=== PATIENT | male | born 1950 | race Caucasian/White ===

== ENCOUNTER 2017-11-18 13:14 | Emergency (ER) | payer OTHER ==
[~2017-11-18] VITALS: Ht 172.7 cm; Wt 108.9 kg
[~2017-11-18 13:14] MED LIST: ALBU90OI6 INH; AMLO5 PO; ASPI325 PO; Acidophilus1 EAC2 PO; BIOTIN1000 MCG PO; CARI350 PO; CENTRUM SILVER1 EAC2 PO; CHRO200 PO; CLON.1 PO; CYAN500 PO; DIAZ5 PO; DOXE10 PO; FURO40 PO; Fish Oil 1,0001 EAC3 PO; Fluoxetine HCl20 M1 PO; GABA600 PO; GLIP10 PO; HYDACE5 PO; Humulin N100 UNIT/1 SC; INSULANPEN SC; L-LYSINE500 MG PO; LOSARTAN POTAS100 MG PO; METF500C PO; METO50 PO; Magnesium500 MG PO; NITR.4SL SL; Novolin R100 UNIT/M SC; OLME20 PO; OXYC10TA19 PO; POTCHL10ER PO; PRAVASTATIN SOD10 MG PO; PYRI100 PO; TRAMADOL HCL E100 MG PO; ZYDONE
[2017-11-18 14:00] LABS: BASOPHILS ABSOLUTE AUTO 0.02 K/mm3 (0.00-0.23); BASOPHILS PERCENT AUTO 0 % (0-2); EOSINOPHILS ABSOLUTE AUTO 0.19 K/mm3 (0.00-0.68); EOSINOPHILS PERCENT AUTO 3 % (0-6); Hematocrit 47.6 % (37.0-53.0); Hemoglobin 15.5 g/dL (13.5-17.5); IMMATURE GRAN ABSOLUTE AUTO 0.02 K/mm3 (0.00-0.10); IMMATURE GRAN PERCENT AUTO 0 % (0-1); LYMPHOCYTES ABSOLUTE AUTO 1.13 K/mm3 (0.84-5.20); LYMPHOCYTES PERCENT AUTO 20 % (21-46); MONOCYTES ABSOLUTE AUTO 0.72 K/mm3 (0.16-1.47); MONOCYTES PERCENT AUTO 13 % (4-13); Mean Corpuscular HGB 28.3 pg (26.0-34.0); Mean Corpuscular HGB Conc 32.6 g/dL (31.5-36.5); Mean Corpuscular Volume 87 fL (80-100); Mean Platelet Volume 11.1 fL (9.1-12.4); NEUTROPHILS ABSOLUTE AUTO 3.45 K/mm3 (1.96-9.15); NEUTROPHILS PERCENT AUTO 62 % (41-73); Platelet Count 205 K/mm3 (150-400); RDW Coefficient Variation 12.8 % (11.7-14.2); RDW Standard Deviation 40.9 fL (35.1-46.3); Red Blood Cell Count 5.47 M/mm3 (4.30-5.90); White Blood Cell Count 5.53 K/mm3 (4.00-11.30)
[2017-11-18 14:17] LABS: Alanine Aminotransfer (ALT/SGP 30 U/L (12-78); Albumin, Blood 3.3 g/dL (3.4-5.0); Albumin/Globulin Ratio 0.8 (0.8-1.8); Alk Phos 98 U/L (50-136); Anion Gap 8 mmol/L (6-16); Aspartate Aminotrans (AST/SGOT 29 U/L (12-37); Bilirubin, Total 0.7 mg/dL (0.1-1.0); Blood Urea Nitrogen 17 mg/dL (8-24); Bun/Creatinine Ratio 21.8 (12.0-20.0); CO2, Blood 26 mmol/L (21-32); Calcium, Blood 8.1 mg/dL (8.5-10.1); Chloride, Blood 105 mmol/L (98-108); Creatinine, Blood 0.78 mg/dL (0.60-1.20); Globulin, Blood 3.9 g/dL (2.2-4.0); Glomerular Filtration Rate >60 (60-); Glucose, Blood 188 mg/dL (70-99); Sodium, Blood 139 mmol/L (136-145); Total Protein, Blood 7.2 g/dL (6.4-8.2)
[2017-11-18 15:48] LABS: Troponin I <0.015 ng/mL (0.000-0.040)
== END 2017-11-18 17:00 | disposition home or self-care (01) ==
LOC: ER 13:14
PROVIDERS: Emergency Medicine
DX: A08.4 Viral intestinal infection, unspecified (principal); Z88.5 Allergy status to narcotic agent; Z88.8 Allergy status to other drugs, medicaments and biological substances; Z79.899 Other long term (current) drug therapy; Z79.82 Long term (current) use of aspirin; Z79.4 Long term (current) use of insulin; Z79.84 Long term (current) use of oral hypoglycemic drugs; E11.9 Type 2 diabetes mellitus without complications; I10 Essential (primary) hypertension
CPT/HCPCS: 36415; 74176; 80053; 83690; 84484; 85025; 93005; 93010; 99284

== ENCOUNTER 2018-01-15 09:15 | Day surgery (SDC) | payer OTHER ==
[~2018-01-15] VITALS: Ht 172.7 cm; Wt 106.4 kg
== END 2018-01-15 11:24 | disposition home or self-care (01) ==
LOC: ORSCSDS 09:15
PROVIDERS: Surgery
PROC: 0DBC8ZX Excision of Ileocecal Valve, Via Natural or Artificial Opening Endoscopic, Diagnostic (ICD-10-PCS; principal; 2018-01-15 10:30)
PROC: 0DBL8ZX Excision of Transverse Colon, Via Natural or Artificial Opening Endoscopic, Diagnostic (ICD-10-PCS; principal; 2018-01-15 10:30)
DX: Z12.11 Encounter for screening for malignant neoplasm of colon (principal); D12.0 Benign neoplasm of cecum; D12.3 Benign neoplasm of transverse colon; I10 Essential (primary) hypertension; E11.9 Type 2 diabetes mellitus without complications; G47.33 Obstructive sleep apnea (adult) (pediatric); E66.9 Obesity, unspecified; Z68.36 Body mass index [BMI] 36.0-36.9, adult; Z87.891 Personal history of nicotine dependence; Z79.82 Long term (current) use of aspirin; Z79.4 Long term (current) use of insulin; Z79.899 Other long term (current) drug therapy
CPT/HCPCS: 82947; 88305; J7120

== ENCOUNTER 2018-03-31 13:33 | Emergency (ER) | payer OTHER ==
[~2018-03-31] VITALS: Ht 172.7 cm; Wt 108.9 kg
[2018-03-31 14:34] LABS: BASOPHILS ABSOLUTE AUTO 0.05 K/mm3 (0.00-0.23); BASOPHILS PERCENT AUTO 1 % (0-2); EOSINOPHILS ABSOLUTE AUTO 0.16 K/mm3 (0.00-0.68); EOSINOPHILS PERCENT AUTO 2 % (0-6); Hematocrit 47.5 % (37.0-53.0); IMMATURE GRAN ABSOLUTE AUTO 0.03 K/mm3 (0.00-0.10); IMMATURE GRAN PERCENT AUTO 0 % (0-1); LYMPHOCYTES ABSOLUTE AUTO 2.59 K/mm3 (0.84-5.20); LYMPHOCYTES PERCENT AUTO 27 % (21-46); MONOCYTES ABSOLUTE AUTO 0.73 K/mm3 (0.16-1.47); MONOCYTES PERCENT AUTO 8 % (4-13); Mean Corpuscular HGB 28.5 pg (26.0-34.0); Mean Corpuscular HGB Conc 33.7 g/dL (31.5-36.5); Mean Corpuscular Volume 85 fL (80-100); Mean Platelet Volume 11.7 fL (9.1-12.4); NEUTROPHILS ABSOLUTE AUTO 6.02 K/mm3 (1.96-9.15); NEUTROPHILS PERCENT AUTO 63 % (41-73); Platelet Count 246 K/mm3 (150-400); RDW Coefficient Variation 12.3 % (11.7-14.2); RDW Standard Deviation 37.7 fL (35.1-46.3); Red Blood Cell Count 5.61 M/mm3 (4.30-5.90); White Blood Cell Count 9.58 K/mm3 (4.00-11.30)
[2018-03-31 15:19] LABS: Alanine Aminotransfer (ALT/SGP 47 U/L (12-78); Albumin, Blood 3.5 g/dL (3.4-5.0); Alk Phos 99 U/L (50-136); Anion Gap 12 mmol/L (6-16); Aspartate Aminotrans (AST/SGOT 32 U/L (12-37); Bilirubin, Total 0.8 mg/dL (0.1-1.0); Blood Urea Nitrogen 12 mg/dL (8-24); CO2, Blood 26 mmol/L (21-32); Calcium, Blood 8.1 mg/dL (8.5-10.1); Chloride, Blood 105 mmol/L (98-108); Creatinine, Blood 0.71 mg/dL (0.60-1.20); Globulin, Blood 3.6 g/dL (2.2-4.0); Glomerular Filtration Rate >60 (60-); Glucose, Blood 170 mg/dL (70-99); Potassium, Blood 3.9 mmol/L (3.5-5.5); Sodium, Blood 143 mmol/L (136-145); Total Protein, Blood 7.1 g/dL (6.4-8.2)
== END 2018-03-31 16:40 | disposition home or self-care (01) ==
LOC: ER 13:33
PROVIDERS: Emergency Medicine
DX: R53.1 Weakness (principal); I10 Essential (primary) hypertension; E11.40 Type 2 diabetes mellitus with diabetic neuropathy, unspecified; Z88.5 Allergy status to narcotic agent; Z88.8 Allergy status to other drugs, medicaments and biological substances; Z79.899 Other long term (current) drug therapy; Z79.82 Long term (current) use of aspirin; Z79.4 Long term (current) use of insulin; Z79.51 Long term (current) use of inhaled steroids; Z86.73 Personal history of transient ischemic attack (TIA), and cerebral infarction without residual deficits
CPT/HCPCS: 70450; 80053; 85025; 93005; 93010; 99285-25

== ENCOUNTER 2018-12-04 09:01 | Day surgery (SDC) | payer OTHER ==
[~2018-12-04] VITALS: Ht 172.7 cm; Wt 108.0 kg
[~2018-12-04 09:01] MED LIST changes: +ALBU90OI61 INH; +ANTACID 1000-21 EACH PO; +Aspir-Trin325 MG PO; +Chromium Pico200 MCG PO; +FISH OIL 1,2001 EACH PO; +FLUO10 PO; +Glucophage1000 MG PO; +L-Lysine500 M1 PO; +METO50ER PO; +Magnesium Oxid500 MG PO; +Nitrostat0.4 MG SL; +ONE DAILY COMP1 EACH PO; +PROBIOTIC & AC1 EACH PO; +PROLIA60 MG/1 ML INJ; +TRAMADOL HCL E100 M2 PO; +VITAMIN D35000 UNI1 PO
--- NOTE | 2018-12-04 11:44 | NUR ---
12/04/18 1144 Tiffany Silva 2% LIDOCAINE NUBULIZER TREATMENT [address] PRADHAN
--- NOTE | 2018-12-04 12:18 | NUR ---
12/04/[address] ALSO IN ENDO ROOM WITH DR. PRADHAN.
--- NOTE | 2018-12-04 13:20 | NUR ---
12/04/18 1320 Norma Judge LATE ENTRY- UPON ARRIVING TO STEP DOWN PT HAD DRY COUGH. LUNG SOUNDS WERE CLEAR AND REGULAR BILATERALLY PER AUSCULATION. PT TOLERATED PO FLUIDS WELL. AFTER DRINKING SOME WATER THE COUGH BECAME LESS. PT HAD O2 SATS OF 95% ON ROOM AIR AND MAINTAINED SATS GREATER THAN 92% WHILE IN STEP DOWN. RN WENT OVER DISCHARGE INSTRUCTIONS WITH PT AND PT'S UNTIL ALL QUESTIONS WERE ANSWERED. PT AMBULATED TO 'S CAR VIA STAND BY ASSIST AND CANE. PT SENT HOME WITH DISCHARGE INSTRUCTIONS AND PERSONAL BELONGINGS. PT VOICED SATISFACTION WITH THE CARE TODAY.
== END 2018-12-04 13:10 | disposition home or self-care (01) ==
LOC: ORSCSDS 09:01
PROVIDERS: Internal Medicine Gastroenterology
PROC: 0DB68ZX Excision of Stomach, Via Natural or Artificial Opening Endoscopic, Diagnostic (ICD-10-PCS; principal; 2018-12-04 11:00)
PROC: 0DB98ZX Excision of Duodenum, Via Natural or Artificial Opening Endoscopic, Diagnostic (ICD-10-PCS; principal; 2018-12-04 11:00)
PROC: 0D757ZZ Dilation of Esophagus, Via Natural or Artificial Opening (ICD-10-PCS; principal; 2018-12-04 11:00)
DX: R13.10 Dysphagia, unspecified (principal); K29.80 Duodenitis without bleeding; K29.70 Gastritis, unspecified, without bleeding; I10 Essential (primary) hypertension; I25.10 Atherosclerotic heart disease of native coronary artery without angina pectoris; J44.9 Chronic obstructive pulmonary disease, unspecified; G47.33 Obstructive sleep apnea (adult) (pediatric); E78.00 Pure hypercholesterolemia, unspecified; I69.341 Monoplegia of lower limb following cerebral infarction affecting right dominant side; E66.01 Morbid (severe) obesity due to excess calories; Z68.36 Body mass index [BMI] 36.0-36.9, adult; Z79.899 Other long term (current) drug therapy
CPT/HCPCS: 82947; 88305; 88342; J2250; J3010; J7120

== ENCOUNTER 2019-03-13 17:30 | Emergency (ER) | payer OTHER ==
[~2019-03-13] VITALS: Ht 172.7 cm; Wt 108.4 kg
[2019-03-13 18:07] LABS: BASOPHILS ABSOLUTE AUTO 0.04 K/mm3 (0.00-0.23); BASOPHILS PERCENT AUTO 0 % (0-2); EOSINOPHILS ABSOLUTE AUTO 0.41 K/mm3 (0.00-0.68); EOSINOPHILS PERCENT AUTO 4 % (0-6); Hematocrit 49.3 % (37.0-53.0); Hemoglobin 16.1 g/dL (13.5-17.5); IMMATURE GRAN ABSOLUTE AUTO 0.05 K/mm3 (0.00-0.10); IMMATURE GRAN PERCENT AUTO 1 % (0-1); LYMPHOCYTES ABSOLUTE AUTO 2.57 K/mm3 (0.84-5.20); LYMPHOCYTES PERCENT AUTO 24 % (21-46); MONOCYTES ABSOLUTE AUTO 0.81 K/mm3 (0.16-1.47); MONOCYTES PERCENT AUTO 8 % (4-13); Mean Corpuscular HGB 28.7 pg (26.0-34.0); Mean Corpuscular HGB Conc 32.7 g/dL (31.5-36.5); Mean Corpuscular Volume 88 fL (80-100); Mean Platelet Volume 10.9 fL (9.1-12.4); NEUTROPHILS ABSOLUTE AUTO 6.94 K/mm3 (1.96-9.15); NEUTROPHILS PERCENT AUTO 64 % (41-73); Platelet Count 248 K/mm3 (150-400); RDW Coefficient Variation 13.2 % (11.7-14.2); RDW Standard Deviation 42.5 fL (35.1-46.3); Red Blood Cell Count 5.61 M/mm3 (4.30-5.90); White Blood Cell Count 10.82 K/mm3 (4.00-11.30)
[2019-03-13 18:30] LABS: Alanine Aminotransfer (ALT/SGP 42 U/L (12-78); Albumin, Blood 3.7 g/dL (3.4-5.0); Albumin/Globulin Ratio 0.9 (0.8-1.8); Alk Phos 106 U/L (50-136); Anion Gap 7 mmol/L (6-16); Aspartate Aminotrans (AST/SGOT 27 U/L (12-37); Bilirubin, Total 0.6 mg/dL (0.1-1.0); Blood Urea Nitrogen 20 mg/dL (8-24); CO2, Blood 30 mmol/L (21-32); Calcium, Blood 8.9 mg/dL (8.5-10.1); Chloride, Blood 101 mmol/L (98-108); Creatinine, Blood 0.74 mg/dL (0.60-1.20); Globulin, Blood 4.1 g/dL (2.2-4.0); Glomerular Filtration Rate >60 (60-); Glucose, Blood 207 mg/dL (70-99); Potassium, Blood 3.8 mmol/L (3.5-5.5); Sodium, Blood 138 mmol/L (136-145); Total Protein, Blood 7.8 g/dL (6.4-8.2)
== END 2019-03-13 21:03 | disposition home or self-care (01) ==
LOC: ER 17:30
PROVIDERS: Emergency Medicine
DX: R19.8 Other specified symptoms and signs involving the digestive system and abdomen (principal); R13.10 Dysphagia, unspecified; E11.9 Type 2 diabetes mellitus without complications; I10 Essential (primary) hypertension; F41.9 Anxiety disorder, unspecified; K21.9 Gastro-esophageal reflux disease without esophagitis; J45.909 Unspecified asthma, uncomplicated; Z79.899 Other long term (current) drug therapy
CPT/HCPCS: 71046; 80053; 85025; 96374; 99283-25; J2405

== ENCOUNTER 2019-10-17 10:44 | Emergency (ER) | payer OTHER ==
[~2019-10-17] VITALS: Ht 175.3 cm; Wt 108.4 kg
[2019-10-17 11:29] LABS: BASOPHILS ABSOLUTE AUTO 0.04 K/mm3 (0.00-0.23); BASOPHILS PERCENT AUTO 1 % (0-2); EOSINOPHILS ABSOLUTE AUTO 0.14 K/mm3 (0.00-0.68); EOSINOPHILS PERCENT AUTO 2 % (0-6); Hematocrit 54.8 % (37.0-53.0); Hemoglobin 17.8 g/dL (13.5-17.5); IMMATURE GRAN ABSOLUTE AUTO 0.03 K/mm3 (0.00-0.10); IMMATURE GRAN PERCENT AUTO 0 % (0-1); LYMPHOCYTES ABSOLUTE AUTO 1.21 K/mm3 (0.84-5.20); LYMPHOCYTES PERCENT AUTO 14 % (21-46); MONOCYTES ABSOLUTE AUTO 0.76 K/mm3 (0.16-1.47); MONOCYTES PERCENT AUTO 9 % (4-13); Mean Corpuscular HGB 28.5 pg (26.0-34.0); Mean Corpuscular HGB Conc 32.5 g/dL (31.5-36.5); Mean Corpuscular Volume 88 fL (80-100); Mean Platelet Volume 11.3 fL (9.1-12.4); NEUTROPHILS ABSOLUTE AUTO 6.41 K/mm3 (1.96-9.15); NEUTROPHILS PERCENT AUTO 75 % (41-73); Platelet Count 238 K/mm3 (150-400); RDW Coefficient Variation 12.7 % (11.7-14.2); RDW Standard Deviation 40.7 fL (35.1-46.3); Red Blood Cell Count 6.25 M/mm3 (4.30-5.90); White Blood Cell Count 8.59 K/mm3 (4.00-11.30)
[2019-10-17 11:46] LABS: Alanine Aminotransfer (ALT/SGP 44 U/L (12-78); Albumin, Blood 3.7 g/dL (3.4-5.0); Anion Gap 8 mmol/L (6-16); Aspartate Aminotrans (AST/SGOT 29 U/L (12-37); Bilirubin, Total 0.8 mg/dL (0.1-1.0); Blood Urea Nitrogen 13 mg/dL (8-24); Bun/Creatinine Ratio 17.4 (12.0-20.0); CO2, Blood 26 mmol/L (21-32); Calcium, Blood 9.1 mg/dL (8.5-10.1); Chloride, Blood 106 mmol/L (98-108); Creatinine, Blood 0.75 mg/dL (0.60-1.20); Glomerular Filtration Rate >60 (60-); Glucose, Blood 240 mg/dL (70-99); Potassium, Blood 3.5 mmol/L (3.5-5.5); Sodium, Blood 140 mmol/L (136-145)
[2019-10-17 11:50] LABS: Albumin/Globulin Ratio 0.9 (0.8-1.8); Alk Phos 114 U/L (50-136); Total Protein, Blood 7.7 g/dL (6.4-8.2); Troponin I <0.015 ng/mL (0.000-0.040)
[2019-10-17 12:12] LABS: Free Thyroxine 1.29 ng/dL (0.70-1.60); Magnesium, Blood 1.6 mg/dL (1.6-2.4)
[2019-10-17 12:14] LABS: Thyroid Stimulating Hormone 1.44 uIU/mL (0.360-4.800)
[2019-10-17 12:22] LABS: Influenza A Negative (NEGATIVE); Influenza B Negative (NEGATIVE)
[2019-10-17] MEDS ORDERED: AZIT250 PO (13:12)
== END 2019-10-17 13:41 | disposition home or self-care (01) ==
LOC: ER 10:44
PROVIDERS: Emergency Medicine
DX: J40 Bronchitis, not specified as acute or chronic (principal); R53.1 Weakness; E11.9 Type 2 diabetes mellitus without complications; I10 Essential (primary) hypertension; K21.9 Gastro-esophageal reflux disease without esophagitis; F41.9 Anxiety disorder, unspecified; Z88.5 Allergy status to narcotic agent; Z88.8 Allergy status to other drugs, medicaments and biological substances; Z79.899 Other long term (current) drug therapy; Z79.4 Long term (current) use of insulin; Z79.51 Long term (current) use of inhaled steroids; Z79.82 Long term (current) use of aspirin
CPT/HCPCS: 36415; 71046; 80053; 83735; 83880; 84439; 84443; 84484; 85025; 87804; 93005; 93010; 99284-25

== ENCOUNTER 2019-12-05 22:05 | Inpatient (IN) | payer OTHER ==
[~2019-12-05] VITALS: Ht 175.3 cm; Wt 103.1 kg
[~2019-12-05 22:05] MED LIST changes: +AZIT250 PO
[2019-12-05 22:56] LABS: BASOPHILS ABSOLUTE AUTO 0.04 K/mm3 (0.00-0.23); BASOPHILS PERCENT AUTO 0 % (0-2); EOSINOPHILS ABSOLUTE AUTO 0.04 K/mm3 (0.00-0.68); EOSINOPHILS PERCENT AUTO 0 % (0-6); Hematocrit 52.6 % (37.0-53.0); Hemoglobin 17.4 g/dL (13.5-17.5); IMMATURE GRAN ABSOLUTE AUTO 0.04 K/mm3 (0.00-0.10); IMMATURE GRAN PERCENT AUTO 0 % (0-1); LYMPHOCYTES ABSOLUTE AUTO 1.28 K/mm3 (0.84-5.20); LYMPHOCYTES PERCENT AUTO 10 % (21-46); MONOCYTES ABSOLUTE AUTO 0.35 K/mm3 (0.16-1.47); MONOCYTES PERCENT AUTO 3 % (4-13); Mean Corpuscular HGB 29.1 pg (26.0-34.0); Mean Corpuscular HGB Conc 33.1 g/dL (31.5-36.5); Mean Corpuscular Volume 88 fL (80-100); Mean Platelet Volume 10.9 fL (9.1-12.4); NEUTROPHILS ABSOLUTE AUTO 10.64 K/mm3 (1.96-9.15); NEUTROPHILS PERCENT AUTO 86 % (41-73); Platelet Count 261 K/mm3 (150-400); RDW Coefficient Variation 12.8 % (11.7-14.2); RDW Standard Deviation 41.1 fL (35.1-46.3); Red Blood Cell Count 5.98 M/mm3 (4.30-5.90); White Blood Cell Count 12.39 K/mm3 (4.00-11.30)
[2019-12-05 23:17] LABS: Alanine Aminotransfer (ALT/SGP 37 U/L (12-78); Albumin, Blood 3.8 g/dL (3.4-5.0); Alk Phos 106 U/L (50-136); Anion Gap 7 mmol/L (6-16); Aspartate Aminotrans (AST/SGOT 23 U/L (12-37); Bilirubin, Total 0.6 mg/dL (0.1-1.0); Blood Urea Nitrogen 11 mg/dL (8-24); Bun/Creatinine Ratio 15.4 (12.0-20.0); CO2, Blood 27 mmol/L (21-32); Calcium, Blood 8.5 mg/dL (8.5-10.1); Chloride, Blood 106 mmol/L (98-108); Creatinine, Blood 0.71 mg/dL (0.60-1.20); Globulin, Blood 3.9 g/dL (2.2-4.0); Glomerular Filtration Rate >60 (60-); Glucose, Blood 170 mg/dL (70-99); Potassium, Blood 3.8 mmol/L (3.5-5.5); Sodium, Blood 140 mmol/L (136-145); Total Protein, Blood 7.7 g/dL (6.4-8.2); Troponin I <0.015 ng/mL (0.000-0.040)
[2019-12-05] MEDS ORDERED: ONDA4ODT MM (23:47)
[2019-12-06 03:06] LABS: Influenza A Negative (NEGATIVE); Influenza B Negative (NEGATIVE)
--- NOTE | 2019-12-06 08:14 | NUR ---
SHIFT SUMMARY PT A&O; ARRIVED VIA STRETCHER FROME ER; TRANSFERED SELF TO BED; PT WEAK & DIZZY; PT DIAPHORETIC, VOMITTING, AND GOWN SATURATED W/URINE; BP ELEVATED; HR STABLE; PT DENIES CHEST PAIN; PT NPO; HOWEVER PO MEDS GIVEN; METOPROLOL AND NORVASC GIVEN PER EMAR; NS GTT STARTED @75; O2 SATS >94 ON RA; DIM LUNG SOUNDS NOTED; PT ABLE TO GO THROUGH MED REC AND ADMIT QUESTIONS; SPOUSE CALLED THIS AM FOR UPDATE; PT DENIES NEEDS AT THIS TIME; CALL LIGHT IN REACH; BED IN LOWEST POSITION; REPORT GIVEN TO DAY SHIFT RN
[2019-12-06 11:27] LABS: Hemoglobin 19.1 g/dL (13.5-17.5); Mean Corpuscular HGB 28.8 pg (26.0-34.0); Mean Corpuscular HGB Conc 33.2 g/dL (31.5-36.5); Mean Corpuscular Volume 87 fL (80-100); Mean Platelet Volume 10.9 fL (9.1-12.4); Platelet Count 322 K/mm3 (150-400); RDW Coefficient Variation 13.5 % (11.7-14.2); Red Blood Cell Count 6.64 M/mm3 (4.30-5.90)
[2019-12-06 11:34] LABS: Hematocrit 57.5 % (37.0-53.0)
[2019-12-06 11:46] LABS: Alanine Aminotransfer (ALT/SGP 39 U/L (12-78); Albumin/Globulin Ratio 0.9 (0.8-1.8); Alk Phos 122 U/L (50-136); Anion Gap 12 mmol/L (6-16); Aspartate Aminotrans (AST/SGOT 23 U/L (12-37); Bilirubin, Total 0.9 mg/dL (0.1-1.0); Blood Urea Nitrogen 9 mg/dL (8-24); Bun/Creatinine Ratio 13.2 (12.0-20.0); CO2, Blood 27 mmol/L (21-32); Calcium, Blood 8.8 mg/dL (8.5-10.1); Chloride, Blood 102 mmol/L (98-108); Creatinine, Blood 0.68 mg/dL (0.60-1.20); Globulin, Blood 4.3 g/dL (2.2-4.0); Glomerular Filtration Rate >60 (60-); Glucose, Blood 275 mg/dL (70-99); Potassium, Blood 3.6 mmol/L (3.5-5.5); Sodium, Blood 141 mmol/L (136-145); Total Protein, Blood 8.3 g/dL (6.4-8.2)
[2019-12-06 12:08] LABS: Source, Urine Clean Catch
[2019-12-06 12:14] LABS: Bilirubin, Urine Neg (Neg); Blood, Urine 3+ (Neg); Glucose Qualitative, Urine 4+ (Neg); Ketones, Urine 4+ (Neg); Leukocyte Esterase, Urine Neg (Neg); Nitrite, Urine Neg (Neg); Protein, Urine 4+ (Neg); Specific Gravity, Urine 1.015 (1.003-1.022); Urobilinogen, Urine NORM (Normal); pH, Urine 6.5 (5.0-8.0)
[2019-12-06 12:21] LABS: Appearance, Urine Clear (Clear); Color, Urine Yellow (P-Yellow)
[2019-12-06 12:22] LABS: Bacteria Few /hpf
[2019-12-06 12:23] LABS: Squamous Epithelial Cells Not Seen /hpf (Few)
--- NOTE | 2019-12-06 17:44 | NUR ---
SHIFT SUMMARY PT REMAINS HYPERTENSIVE. PO MEDS ADMINISTERED PER EMAR. PRN HYDRALIZINE WAS GIVEN X2. HOSPITALIST NOTIFIED, HAS BEEN CONSULTED. PT STATES HE SEE'S JASON AN OUT PT FOR HTN MANAGEMENT. PT HAS BEEN NAUSEOUS. IV ZOFRAN & REGLAN GIVEN PER EMAR. PT IS CURRENTLY UP IN THE CHAIR SIPPING ON CLEAR FLUIDS. 1000 ML NS INFUSED X1 PER ORDER. MEDIUM SLIDING SCALE ORDERED FOR GLUCOSE COVERAGE, AWAITING HUMALOG, ON ROOM AIR, DENIES CP/SOB. VOIDING WNL, INCONTINENCE NOTED, HE WILL ATTEMPT TO USE THE URINAL AT TIMES. WCTM & REPORT TO ARASELI HOWE.
--- NOTE | 2019-12-07 07:50 | NUR ---
PT A&O; CALM AND COMPLIANT W/ CARE; OF STOIC NATURE AND RELUCTANT TO CALL STAFF W/ BRIEF CHANGE NEEDS; ATTENDS ASSESSED Q 2 HRS; PT EDUCATED FOR TO CALL STAFF FOR ATTENDS CHANGE FOR SKIN INTEGRITY; PT SPOKE TO SPOUSE AND PT REPORTED THAT SPOUSE HAS BEEN VOMITTING WELL; PT GIVEN REGLAN FOR NAUSEA AND TO TAKE PO 2100 MEDS; O2 SATS >95 ON RA; PT DENIES CHEST PAIN; NSR HR 80'S NOTED ON TELE; CALL LIGHT IN REACH; BED IN LOWEST POSITION; REPORT GIVEN TO DAY SHIFT RN.
[2019-12-07 07:59] LABS: Thyroid Stimulating Hormone 1.35 uIU/mL (0.360-4.800)
--- NOTE | 2019-12-07 16:48 | NUR ---
SHIFT SUMMARY NO ACUTE CHANGES THROUGHOUT SHIFT. BP BETTER CONTROLLED TODAY, MAINTAINING AROUND THE 150'S. PT DENIED ANY C/O CHEST PAIN/PRESSURE, SOB, NAUSEA/VOMITING, OR HEADACHE THIS SHIFT. RENAL US WAS COMPLETED AT BEDSIDE; RESULTS UNREMARKABLE. DR. GOMEZ IN TO SEE PT; ORDERED 24 HOUR URINE TEST. PT IS INCONTINENT AT TIMES & RELUCTANT TO CALL WHEN NEEDING TO VOID; DISCUSSED IMPORTANCE OF ACCURATE URINE OUTPUT FOR TESTING; ENCOURAGED URINAL USE W/ HOURLY ROUNDING. A BLADDER SCAN WAS PERFORMED PER MD REQUEST, PVR READ [address] SKINNER WAS CONSULTED TODAY FOR POLYCYTHEMIA; BEDSIDE PHLEBOTOMY WAS PERFORMED BY MD TO IMPROVE HYPERTENSION; PT TOLERATED WELL. PT CURRENTLY RESTING IN BED IN NO DISTRESS. 24 HOUR URINE TESTING REMAINS IN PROGRESS. WILL CONTINUE TO MONITOR UNTIL END OF SHIFT.
[2019-12-08 04:28] LABS: Hematocrit 51.4 % (37.0-53.0)
[2019-12-08 04:55] LABS: Albumin, Blood 3.2 g/dL (3.4-5.0); Anion Gap 8 mmol/L (6-16); Blood Urea Nitrogen 24 mg/dL (8-24); Bun/Creatinine Ratio 32.3 (12.0-20.0); CO2, Blood 26 mmol/L (21-32); Calcium, Blood 8.1 mg/dL (8.5-10.1); Chloride, Blood 106 mmol/L (98-108); Creatinine, Blood 0.74 mg/dL (0.60-1.20); Glomerular Filtration Rate >60 (60-); Glucose, Blood 194 mg/dL (70-99); Magnesium, Blood 2.3 mg/dL (1.6-2.4); Phosphorus, Blood 1.8 mg/dL (2.5-4.9); Potassium, Blood 3.4 mmol/L (3.5-5.5); Sodium, Blood 140 mmol/L (136-145)
--- NOTE | 2019-12-08 07:49 | NUR ---
ASSUMED PATIENT CARE. PATIENT RESTING COMFORTABLY IN BED, CONVERSING WITH NURSING STAFF. NO SIGNS OF ACUTE DISTRESS, WCTM.
--- NOTE | 2019-12-08 08:15 | NUR ---
SHIFT SUMMARY PT A&O; VSS; DENIES CHEST PAIN; O2 SATS >94 ON RA; PT INCONTINENT; ATTENDS IN PLACE; PT EDUCATED ON NEED FOR 24 HR URINE; PT DENIES NEED TO URINATE; LATER NOTED ATTENDS SATURATED; PT EDUCATED TO USE CALL LIGHT TO NOTIFY STAFF OF NEEDS; PT APPEARS TO USE URINAL MORE READILY DURING DAY SHIFT PER REPORTS BETWEEN STAFF; PT DENIES NEEDS; SNACK BROUGHT TO PT AND PT ATE AND WAS APPRECIATIVE; PT ENCOURAGED TO EAT AND EDUCATED THAT SNACKS CAN BE PROVIDED AT NIGHT; PT DENIED DENTURE CUP; DENIED HELP W/ PERSONAL BELONGINGS; WARM BLANKET BROUGHT TO PT; CALL LIGHT IN REACH; BED IN LOWEST POSITION; PT SITTING IN BED W/ BREAKFAST TRAY; REPORT GIVEN TO DAY SHIFT RN.
[2019-12-08 11:39] LABS: Protein, Urine Quantitative 110.3 mg/dL (0.0-11.9)
--- NOTE | 2019-12-08 11:47 | NUR ---
REPORT CALLED TO DANTE HOWE ON MEDICAL.
--- NOTE | 2019-12-08 11:47 | NUR ---
PATIENT TRANSFERED TO RM. 313.
--- NOTE | 2019-12-08 12:11 | NUR ---
PCU TRANSFER- PT ARRIVED TO ROOM 313 VIA W/C FROM PCU 8. 1 ASSIST INTO BED WITH FWW. PT A/OX4, DENIES ANY COMPLAINTS. LS CLEAR, ON RA. HRR. PT ORIENTED TO ROOM AND CALL SYSTEM, CALL LIGHT IN REACH AND PT SITTING AT EDGE OF BED EATING LUNCH AT THIS TIME.
--- NOTE | 2019-12-08 16:55 | NUR ---
SHIFT SUMMARY- PT A PCU TRANSFER THIS AM. PT A/OX3, 1 ASSIST WITH FWW OOB. PT DENIES ANY COMPLAINTS SINCE ARRIVAL TO FLOOR. LS CLEAR, ON RA. HRR. BP HAS BEEN WELL CONTROLLED SINCE ARRIVAL TO FLOOR. NO OTHER ACUTE CHANGES THIS SHIFT.
[2019-12-09 05:09] LABS: Hematocrit 49.4 % (37.0-53.0); Hemoglobin 16.3 g/dL (13.5-17.5)
[2019-12-09 05:22] LABS: Magnesium, Blood 2.2 mg/dL (1.6-2.4)
[2019-12-09 05:23] LABS: Anion Gap 5 mmol/L (6-16); Blood Urea Nitrogen 21 mg/dL (8-24); Bun/Creatinine Ratio 25.6 (12.0-20.0); CO2, Blood 31 mmol/L (21-32); Calcium, Blood 8.3 mg/dL (8.5-10.1); Chloride, Blood 105 mmol/L (98-108); Creatinine, Blood 0.82 mg/dL (0.60-1.20); Glomerular Filtration Rate >60 (60-); Glucose, Blood 112 mg/dL (70-99); Phosphorus, Blood 2.9 mg/dL (2.5-4.9); Potassium, Blood 3.4 mmol/L (3.5-5.5); Sodium, Blood 141 mmol/L (136-145)
--- NOTE | 2019-12-09 05:55 | NUR ---
PT quiet and clam. Room air hypertension controlled on current meds. No void this shift bladder scanned for 86 ml highest volume of several views. DR Branch notified and no new orders, reviewed vitals bradycardia and anuria. PT as no urge to void. Ate 50 % diet and denies nausea. Not up out of bed this shift. Sliding scale insulin given for BG 244.
--- NOTE | 2019-12-09 16:05 | NUR ---
SHIFT SUMMARY NO ACUTE CHANGES TODAY. VSS. PT DENIES ANY COMPLAINTS. PT DOES HAVE SOME WEAKNESS, AND PHYSICAL THERAPY DID EVAL TODAY. 1 ASSIST WITH FWW. USING URINAL TO VOID. PLAN IS FOR PT TO DISCHARGE HOME TOMORROW. CALL LIGHT WITHIN REACH.
[2019-12-10 05:00] LABS: BASOPHILS ABSOLUTE AUTO 0.05 K/mm3 (0.00-0.23); BASOPHILS PERCENT AUTO 1 % (0-2); EOSINOPHILS ABSOLUTE AUTO 0.49 K/mm3 (0.00-0.68); EOSINOPHILS PERCENT AUTO 5 % (0-6); Hematocrit 50.5 % (37.0-53.0); Hemoglobin 16.7 g/dL (13.5-17.5); IMMATURE GRAN ABSOLUTE AUTO 0.05 K/mm3 (0.00-0.10); IMMATURE GRAN PERCENT AUTO 1 % (0-1); LYMPHOCYTES ABSOLUTE AUTO 2.66 K/mm3 (0.84-5.20); LYMPHOCYTES PERCENT AUTO 25 % (21-46); MONOCYTES ABSOLUTE AUTO 0.85 K/mm3 (0.16-1.47); MONOCYTES PERCENT AUTO 8 % (4-13); Mean Corpuscular HGB 28.9 pg (26.0-34.0); Mean Corpuscular HGB Conc 33.1 g/dL (31.5-36.5); Mean Corpuscular Volume 88 fL (80-100); Mean Platelet Volume 10.8 fL (9.1-12.4); NEUTROPHILS PERCENT AUTO 62 % (41-73); Platelet Count 261 K/mm3 (150-400); RDW Coefficient Variation 12.9 % (11.7-14.2); RDW Standard Deviation 41.4 fL (35.1-46.3); Red Blood Cell Count 5.77 M/mm3 (4.30-5.90)
[2019-12-10 05:18] LABS: Anion Gap 4 mmol/L (6-16); Blood Urea Nitrogen 21 mg/dL (8-24); Bun/Creatinine Ratio 25.4 (12.0-20.0); CO2, Blood 30 mmol/L (21-32); Calcium, Blood 8.2 mg/dL (8.5-10.1); Chloride, Blood 106 mmol/L (98-108); Creatinine, Blood 0.83 mg/dL (0.60-1.20); Glomerular Filtration Rate >60 (60-); Glucose, Blood 84 mg/dL (70-99); Magnesium, Blood 2.2 mg/dL (1.6-2.4); Phosphorus, Blood 3.7 mg/dL (2.5-4.9); Potassium, Blood 3.4 mmol/L (3.5-5.5); Sodium, Blood 140 mmol/L (136-145)
--- NOTE | 2019-12-10 06:54 | NUR ---
PT with hx of CVA and chronic Kidney disease. Polycythenia continues stable. BP controlled on current RX. Tolerating diet and activity. Up with assist and FWW. Planning to DC home with home health services. Lives with & Son.
[2019-12-10] MEDS ORDERED: K-Dur 20 meq T20 MEQ PO (11:31)
--- NOTE | 2019-12-10 11:32 | NUR ---
DISCHARGE/HOME HEALTH ARRANGEMENTS PT'S MURPHY NOTIFIED OF DISCHARGE PLAN AND EDUCATED ABOUT CHANGE IN HOME MEDICATIONS. VIANEY FROM DISCHARGE PLANNING AND SHELDON WERE NOTIFIED THAT PT WILL NEED HOME HEALTH ARRANGEMENTS MADE.
[2019-12-10] MEDS ORDERED: AMLO5 PO (12:33)
--- NOTE | 2019-12-10 13:45 | NUR ---
DISCHARGE PT PROVIDED WITH WRITTEN AND VERBAL DISCHARGE INSTRUCTIONS. PT REPORTED HE UNDERSTOOD. NEW SCRIPTS FAXED TO [facility] IN [place] PER PT REQUEST. WILL CONTINUE TO MONITOR.
[2019-12-10 17:09] LABS: METANEPHRINE, UR 173 ug/L (Undefined)
[2019-12-11 00:10] LABS: ALDOS/RENIN RATIO 5.2 (0.0-30.0)
[2019-12-12 22:06] LABS: CREATININE, URINE 128.4 mg/dL (Not Estab.)
== END 2019-12-10 13:36 | disposition home health service (06) | DRG 305 ==
LOC: ER 22:05 → PCU 22:06 → ER 12-06 01:00 → PCU 12-06 05:15 → MEDS 12-08 11:58 → ENPENDDIS 12-10 13:10 → MEDS 12-10 13:36
PROVIDERS: Emergency Medicine; Internal Medicine; Internal Medicine Nephrology; Physician Assistant; ADMIT Internal Medicine
DX: I16.0 Hypertensive urgency (principal); D75.1 Secondary polycythemia; N18.2 Chronic kidney disease, stage 2 (mild); I12.9 Hypertensive chronic kidney disease with stage 1 through stage 4 chronic kidney disease, or unspecified chronic kidney disease; E11.22 Type 2 diabetes mellitus with diabetic chronic kidney disease; E87.6 Hypokalemia; E83.39 Other disorders of phosphorus metabolism; E78.5 Hyperlipidemia, unspecified; E11.40 Type 2 diabetes mellitus with diabetic neuropathy, unspecified; D63.1 Anemia in chronic kidney disease; Z86.73 Personal history of transient ischemic attack (TIA), and cerebral infarction without residual deficits; Z79.82 Long term (current) use of aspirin; Z79.4 Long term (current) use of insulin; Z79.84 Long term (current) use of oral hypoglycemic drugs
CPT/HCPCS: 36415; 70450; 71045; 80053; 80069; 81001; 81050; 82088; 82530; 82947; 83690; 83735; 83835; 84156; 84244; 84443; 84484; 84550; 85014; 85018; 85025; 85027; 87804; 93005; 93010; 93975; 96361; 96372; 96374; 96375; 96376; 97116; 97162; 97530; 99285-25; A9270-GY; G0378; J0360; J1650; J2405; J2765; J7030; J7060

== ENCOUNTER 2020-01-02 13:29 | Emergency (ER) | payer OTHER ==
[~2020-01-02] VITALS: Ht 175.3 cm; Wt 104.3 kg
[~2020-01-02 13:29] MED LIST changes: +ASPI325EC PO; -Aspir-Trin325 MG PO; -FISH OIL 1,2001 EACH PO; +Fish Oil Conc1000 MG PO; +K-Dur 20 meq T20 MEQ PO; +ONDA4ODT MM; -PROLIA60 MG/1 ML INJ; +PROLIA60 MG/1 ML SC; +ROXICODONE15 MG PO; +VITAMIN D31000 UNI1 PO; -VITAMIN D35000 UNI1 PO
[2020-01-02 14:52] LABS: BASOPHILS ABSOLUTE AUTO 0.04 K/mm3 (0.00-0.23); BASOPHILS PERCENT AUTO 1 % (0-2); EOSINOPHILS PERCENT AUTO 3 % (0-6); Hematocrit 45.3 % (37.0-53.0); Hemoglobin 15.2 g/dL (13.5-17.5); IMMATURE GRAN ABSOLUTE AUTO 0.02 K/mm3 (0.00-0.10); IMMATURE GRAN PERCENT AUTO 0 % (0-1); LYMPHOCYTES ABSOLUTE AUTO 2.31 K/mm3 (0.84-5.20); LYMPHOCYTES PERCENT AUTO 26 % (21-46); MONOCYTES ABSOLUTE AUTO 0.72 K/mm3 (0.16-1.47); MONOCYTES PERCENT AUTO 8 % (4-13); Mean Corpuscular HGB 29.1 pg (26.0-34.0); Mean Corpuscular HGB Conc 33.6 g/dL (31.5-36.5); Mean Corpuscular Volume 87 fL (80-100); Mean Platelet Volume 11.9 fL (9.1-12.4); NEUTROPHILS ABSOLUTE AUTO 5.45 K/mm3 (1.96-9.15); NEUTROPHILS PERCENT AUTO 62 % (41-73); Platelet Count 259 K/mm3 (150-400); RDW Coefficient Variation 12.6 % (11.7-14.2); RDW Standard Deviation 39.6 fL (35.1-46.3); Red Blood Cell Count 5.22 M/mm3 (4.30-5.90); White Blood Cell Count 8.84 K/mm3 (4.00-11.30)
[2020-01-02 14:57] LABS: Alanine Aminotransfer (ALT/SGP 39 U/L (12-78); Albumin, Blood 3.1 g/dL (3.4-5.0); Albumin/Globulin Ratio 0.9 (0.8-1.8); Alk Phos 112 U/L (50-136); Anion Gap 5 mmol/L (6-16); Aspartate Aminotrans (AST/SGOT 28 U/L (12-37); Bilirubin, Total 0.5 mg/dL (0.1-1.0); Blood Urea Nitrogen 13 mg/dL (8-24); Bun/Creatinine Ratio 17.5 (12.0-20.0); CO2, Blood 26 mmol/L (21-32); Calcium, Blood 8.8 mg/dL (8.5-10.1); Chloride, Blood 105 mmol/L (98-108); Creatinine, Blood 0.74 mg/dL (0.60-1.20); Globulin, Blood 3.6 g/dL (2.2-4.0); Glomerular Filtration Rate >60 (60-); Glucose, Blood 264 mg/dL (70-99); Potassium, Blood 4.2 mmol/L (3.5-5.5); Sodium, Blood 136 mmol/L (136-145); Total Protein, Blood 6.7 g/dL (6.4-8.2)
[2020-01-02 15:18] LABS: Source, Urine Clean Catch
[2020-01-02 15:25] LABS: Appearance, Urine Clear (Clear); Bilirubin, Urine Neg (Neg); Blood, Urine Neg (Neg); Color, Urine Yellow (P-Yellow); Glucose Qualitative, Urine 4+ (Neg); Ketones, Urine Neg (Neg); Leukocyte Esterase, Urine Neg (Neg); Nitrite, Urine Neg (Neg); Protein, Urine 3+ (Neg); Specific Gravity, Urine 1.025 (1.003-1.022); Urobilinogen, Urine NORM (Normal)
[2020-01-02 15:37] LABS: Bacteria Not Seen /hpf; Red Blood Cells, Urine Not Seen /hpf (0-2); Squamous Epithelial Cells Not Seen /hpf (Few); White Blood Cells, Urine Not Seen /hpf (0-5)
== END 2020-01-02 16:17 | disposition home or self-care (01) ==
LOC: ER 13:29
PROVIDERS: Physician Assistant
DX: R29.898 Other symptoms and signs involving the musculoskeletal system (principal); I10 Essential (primary) hypertension; E11.42 Type 2 diabetes mellitus with diabetic polyneuropathy; K21.9 Gastro-esophageal reflux disease without esophagitis; F41.9 Anxiety disorder, unspecified; J45.909 Unspecified asthma, uncomplicated; Z88.5 Allergy status to narcotic agent; Z88.8 Allergy status to other drugs, medicaments and biological substances; Z79.899 Other long term (current) drug therapy; Z79.82 Long term (current) use of aspirin; Z79.4 Long term (current) use of insulin; Z79.51 Long term (current) use of inhaled steroids
CPT/HCPCS: 70450; 80053; 81001; 83880; 85025; 93005; 93010; 99285-25

== ENCOUNTER 2020-01-03 15:40 | Inpatient (IN) | payer OTHER ==
[~2020-01-03] VITALS: Ht 175.3 cm; Wt 97.6 kg
[2020-01-03 16:19] LABS: BASOPHILS ABSOLUTE AUTO 0.05 K/mm3 (0.00-0.23); BASOPHILS PERCENT AUTO 1 % (0-2); EOSINOPHILS ABSOLUTE AUTO 0.33 K/mm3 (0.00-0.68); EOSINOPHILS PERCENT AUTO 4 % (0-6); Hematocrit 48.6 % (37.0-53.0); Hemoglobin 16.2 g/dL (13.5-17.5); IMMATURE GRAN ABSOLUTE AUTO 0.03 K/mm3 (0.00-0.10); IMMATURE GRAN PERCENT AUTO 0 % (0-1); LYMPHOCYTES ABSOLUTE AUTO 2.11 K/mm3 (0.84-5.20); LYMPHOCYTES PERCENT AUTO 23 % (21-46); MONOCYTES ABSOLUTE AUTO 0.75 K/mm3 (0.16-1.47); MONOCYTES PERCENT AUTO 8 % (4-13); Mean Corpuscular HGB 29.1 pg (26.0-34.0); Mean Corpuscular HGB Conc 33.3 g/dL (31.5-36.5); Mean Corpuscular Volume 87 fL (80-100); Mean Platelet Volume 11.1 fL (9.1-12.4); NEUTROPHILS ABSOLUTE AUTO 5.73 K/mm3 (1.96-9.15); NEUTROPHILS PERCENT AUTO 64 % (41-73); Platelet Count 271 K/mm3 (150-400); RDW Coefficient Variation 12.5 % (11.7-14.2); RDW Standard Deviation 40.3 fL (35.1-46.3); Red Blood Cell Count 5.56 M/mm3 (4.30-5.90)
[2020-01-03 16:39] LABS: Alanine Aminotransfer (ALT/SGP 36 U/L (12-78); Albumin, Blood 3.3 g/dL (3.4-5.0); Albumin/Globulin Ratio 0.9 (0.8-1.8); Alk Phos 100 U/L (50-136); Anion Gap 5 mmol/L (6-16); Aspartate Aminotrans (AST/SGOT 23 U/L (12-37); Bilirubin, Total 0.6 mg/dL (0.1-1.0); Blood Urea Nitrogen 14 mg/dL (8-24); Bun/Creatinine Ratio 23.1 (12.0-20.0); CO2, Blood 25 mmol/L (21-32); Calcium, Blood 8.4 mg/dL (8.5-10.1); Chloride, Blood 107 mmol/L (98-108); Creatinine, Blood 0.61 mg/dL (0.60-1.20); Globulin, Blood 3.8 g/dL (2.2-4.0); Glomerular Filtration Rate >60 (60-); Glucose, Blood 190 mg/dL (70-99); Potassium, Blood 3.8 mmol/L (3.5-5.5); Sodium, Blood 137 mmol/L (136-145); Total Protein, Blood 7.1 g/dL (6.4-8.2)
[2020-01-03 16:41] LABS: International Normalized Ratio 1.07; Prothrombin Time Results 11.4 Sec (9.7-11.5)
--- NOTE | 2020-01-03 18:34 | NUR ---
RECEIVED REPORT FROM CELI MORALES RN, AT 1833. PATIENT TO BE TRANSFERED TO ROOM 305.
--- NOTE | 2020-01-03 19:00 | NUR ---
ASSUMED CARE PT TRANSPORTED FROM ED TO [facility] AT SHIFT CHANGE, RECEIVED REPORT FROM SHYAM CHUNG. ASSUMED CARE OF PT. TRANSFERRED PT TO HOSPITAL BED FROM [facility] WITH ASSISTANCE OF 3. PT REPORTS INABILITY TO SELF-TRANSFER OR AMBULATE D/T WEAKNESS. NO S/S ACUTE DISTRESS NOTED. RESPS EVEN AND UNLABORED. PT PLACED IN POSITION OF COMFORT, ORIENTED TO ROOM AND USE OF CALL LIGHT. REMINDED PT TO CALL WITH NEEDS. INDICATED UNDERSTANDING. BED IN LOWEST POSITION WITH ALARM ON. WILL CONTINUE TO MONITOR.
--- NOTE | 2020-01-03 19:10 | NUR ---
PATIENT ARRIVED TO ROOM 305 AT 1900. TYLER HOWE GIVEN REPORT AND TO TAKE OVER CARE OF PATIENT AT THIS TIME.
--- NOTE | 2020-01-04 04:20 | NUR ---
SHIFT SUMMARY PT REMAINS ASLEEP DURING THIS TIME, NO ACUTE EVENTS NOTED T/O NIGHT. WAS MONITORED EVERY 1-2 HOURS WITH NEEDS MET, DENIES ANY NEEDS AT THIS TIME. NEURO CHECKS PERFORMED Q4H ORDERED. LT SIDE NOTED TO BE WEAKER THAN RT. PT SPEECH SLURRED, DIFFICULT TO UNDERSTAND AT TIMES, BUT ABLE TO MAKE NEEDS KNOWN. PLEASANT AND COOPERATIVE WITH CARES. CALL LIGHT, POSSESSIONS IN REACH, BED IN LOWEST POSITION WITH ALARM ON, HOB ELEVATED. WILL CONTINUE TO MONITOR UNTIL DAY RN ASSUMES CARE.
[2020-01-04 04:36] LABS: BASOPHILS ABSOLUTE AUTO 0.04 K/mm3 (0.00-0.23); BASOPHILS PERCENT AUTO 1 % (0-2); EOSINOPHILS ABSOLUTE AUTO 0.36 K/mm3 (0.00-0.68); EOSINOPHILS PERCENT AUTO 4 % (0-6); Hematocrit 46.5 % (37.0-53.0); Hemoglobin 15.5 g/dL (13.5-17.5); IMMATURE GRAN ABSOLUTE AUTO 0.03 K/mm3 (0.00-0.10); IMMATURE GRAN PERCENT AUTO 0 % (0-1); LYMPHOCYTES ABSOLUTE AUTO 2.37 K/mm3 (0.84-5.20); LYMPHOCYTES PERCENT AUTO 27 % (21-46); MONOCYTES ABSOLUTE AUTO 0.79 K/mm3 (0.16-1.47); MONOCYTES PERCENT AUTO 9 % (4-13); Mean Corpuscular HGB 28.9 pg (26.0-34.0); Mean Corpuscular HGB Conc 33.3 g/dL (31.5-36.5); Mean Corpuscular Volume 87 fL (80-100); Mean Platelet Volume 11.5 fL (9.1-12.4); NEUTROPHILS ABSOLUTE AUTO 5.21 K/mm3 (1.96-9.15); NEUTROPHILS PERCENT AUTO 59 % (41-73); Platelet Count 270 K/mm3 (150-400); RDW Coefficient Variation 12.7 % (11.7-14.2); RDW Standard Deviation 40.1 fL (35.1-46.3); Red Blood Cell Count 5.36 M/mm3 (4.30-5.90)
[2020-01-04 04:53] LABS: Anion Gap 7 mmol/L (6-16); Blood Urea Nitrogen 12 mg/dL (8-24); Bun/Creatinine Ratio 18.3 (12.0-20.0); CHOL/HDL RATIO 4.8; CO2, Blood 26 mmol/L (21-32); Chloride, Blood 108 mmol/L (98-108); Cholesterol 196 mg/dL (50-200); Creatinine, Blood 0.66 mg/dL (0.60-1.20); Glomerular Filtration Rate >60 (60-); Glucose, Blood 80 mg/dL (70-99); HDL Cholesterol 41 mg/dL (>39); LDL/HDL RATIO 2.9; Low Density Lipoprotein Chol 121 mg/dL (0-110); Potassium, Blood 3.3 mmol/L (3.5-5.5); Sodium, Blood 141 mmol/L (136-145); Triglycerides 172 mg/dL (30-160); Very Low Density Lipoprot Chol 34 mg/dL (6-32)
--- NOTE | 2020-01-04 06:57 | NUR ---
[address] MUÑIZ REGARDING PT'S POTASSIUM LEVEL, PT USE OF O2 AT HOME TO SEE IF A PRN O2 ORDER COULD BE ADDED. STATED TO CHECK WITH AM DOCTOR. NO OTHER ORDERS RECEIVED AT THIS TIME.
--- NOTE | 2020-01-04 11:16 | NUR ---
Echocardiogram completed.
--- NOTE | 2020-01-04 16:08 | NUR ---
PATIENT HAD GOOD DAY THIS SHIFT. WORKED WITH PT/OT AND ST. 2X MAX ASSIST PIVOT TRANSFER. PATIENT CAN NOT BE LEFT SITTING UPRIGHT IN A CHAIR HE FALLS FORWARD AND IS UNABLE TO PICK HIMSELF BACK UP. VITALS ARE STABLE AND WNL. NEUROLOGICALLY THE PATIENT IS A/OX4, SLOW SPEECH, LEFT SIDED WEAKNESS. PATIENT IS PLEASANT AND COOPERATIVE WITH STAFF. PATIENT BACK IN BED RESTING. WILL CONTINUE TO MONITOR AND PROVIDE CARE NEEDED.
--- NOTE | 2020-01-05 05:40 | NUR ---
SHIFT SUMMARY SLEPT WELL T/O NIGHT. DENIES PAIN, NAUSEA OR DYSPNEA. VSS. AOX4. HAS SLURRED SPEECH, ANSWERS QUESTIONS APPROPRIATELY, L FACIAL DROOP, L HAND MEDICAL DEVICE SALES CONSULTANT WEAKER THEN RIGHT, ABLE TO MOVE/WIGGLE ALL EXTREMITIES, STATES UNABLE TO STAND FROM WEAKNESS, FOLLOWS DIRECTIONS. INCONTINENT OF URINE, CHANGE PRN. SOFT TOUCH CALL LIGHT PLACED. ABLE TO FEED SELF BUT STATES IT IS DIFFICULT, MAY NEED SOME ASSISTANCE W/MEALS @TIMES-WILL PASS TO ONCOMING NURSE. CBG @HS WAS 356, COVERAGE PROVIDED PER ORDERS. WCTM.
[2020-01-05] MEDS ORDERED: ACET325 PO (12:34)
[2020-01-05] MEDS ORDERED: CLOP75 PO (12:35)
[2020-01-05] MEDS ORDERED: Aspir 8181 MG PO (12:35)
[2020-01-05] MEDS ORDERED: COLACE100 MG PO (12:35)
[2020-01-05] MEDS ORDERED: Humalog100 UNIT/3 SC (12:36)
--- NOTE | 2020-01-05 16:12 | NUR ---
[facility] AT [facility]. PERSONAL BELONGINGS WITH PT. PT 2 PERSON TRANSFER WITH [facility] TO [facility] FOR TRANSPORT. DC ORDERS AND RX SENT WITH PT.
== END 2020-01-05 16:12 | DRG 65 ==
LOC: ER 15:40 → MEDS 18:34
PROVIDERS: Emergency Medicine; ADMIT Internal Medicine
DX: I63.81 Other cerebral infarction due to occlusion or stenosis of small artery (principal); G81.94 Hemiplegia, unspecified affecting left nondominant side; R29.810 Facial weakness; R47.81 Slurred speech; I10 Essential (primary) hypertension; E78.5 Hyperlipidemia, unspecified; E66.9 Obesity, unspecified; R26.9 Unspecified abnormalities of gait and mobility; M81.0 Age-related osteoporosis without current pathological fracture; J44.9 Chronic obstructive pulmonary disease, unspecified; F32.9 Major depressive disorder, single episode, unspecified; G89.29 Other chronic pain; M54.9 Dorsalgia, unspecified; E11.40 Type 2 diabetes mellitus with diabetic neuropathy, unspecified; Z88.8 Allergy status to other drugs, medicaments and biological substances; Z88.5 Allergy status to narcotic agent; Z79.82 Long term (current) use of aspirin; Z79.4 Long term (current) use of insulin; Z79.891 Long term (current) use of opiate analgesic; Z79.899 Other long term (current) drug therapy; Z86.73 Personal history of transient ischemic attack (TIA), and cerebral infarction without residual deficits; Z68.31 Body mass index [BMI] 31.0-31.9, adult
CPT/HCPCS: 36415; 70450; 70551; 71045; 80048; 80053; 80061; 82947; 83036; 85025; 85610; 92526; 92610; 93005; 93010; 93306; 93880; 97110; 97163; 97167; 97530; 99285-25; A9270-GY; J1650

== ENCOUNTER → 2020-04-14 | Outpatient (CLI) | payer OTHER ==
[~2020-04-14] MED LIST changes: +ACET325 PO; +Aspir 8181 MG PO; +CLOP75 PO; +COLACE100 MG PO; +Humalog100 UNIT/3 SC
[2020-04-14 15:42] LABS: Hematocrit 51.4 % (37.0-53.0); Hemoglobin 16.3 g/dL (13.5-17.5)
[2020-04-14 16:15] LABS: Albumin, Blood 2.7 g/dL (3.4-5.0); Anion Gap 7 mmol/L (6-16); Blood Urea Nitrogen 29 mg/dL (8-24); CO2, Blood 26 mmol/L (21-32); Calcium, Blood 8.4 mg/dL (8.5-10.1); Chloride, Blood 105 mmol/L (98-108); Creatinine, Blood 0.68 mg/dL (0.60-1.20); Glomerular Filtration Rate >60 (60-); Glucose, Blood 194 mg/dL (70-99); Potassium, Blood 3.7 mmol/L (3.5-5.5); Sodium, Blood 138 mmol/L (136-145)
== END | disposition home or self-care (01) ==
LOC: LAB SHORT 14:24 → LAB 14:24
PROVIDERS: Internal Medicine Nephrology
DX: N18.3 Chronic kidney disease, stage 3 (moderate) (principal); D63.1 Anemia in chronic kidney disease; N40.1 Benign prostatic hyperplasia with lower urinary tract symptoms
CPT/HCPCS: 80069; 84153; 85014; 85018

== ENCOUNTER → 2020-05-11 | Outpatient (CLI) | payer OTHER ==
[2020-05-11 19:38] LABS: Albumin, Blood 2.6 g/dL (3.4-5.0); Anion Gap 6 mmol/L (6-16); Blood Urea Nitrogen 15 mg/dL (8-24); Bun/Creatinine Ratio 26.3 (12.0-20.0); CO2, Blood 27 mmol/L (21-32); Calcium, Blood 8.2 mg/dL (8.5-10.1); Chloride, Blood 103 mmol/L (98-108); Creatinine, Blood 0.57 mg/dL (0.60-1.20); Glomerular Filtration Rate >60 (60-); Glucose, Blood 304 mg/dL (70-99); Phosphorus, Blood 3.1 mg/dL (2.5-4.9); Potassium, Blood 4.1 mmol/L (3.5-5.5); Sodium, Blood 136 mmol/L (136-145)
== END | disposition home or self-care (01) ==
LOC: LAB SHORT 18:34 → LAB 18:34
PROVIDERS: Internal Medicine Nephrology
DX: N18.2 Chronic kidney disease, stage 2 (mild) (principal)
CPT/HCPCS: 80069; 85018

== ENCOUNTER → 2020-08-17 | Outpatient (CLI) | payer OTHER ==
[~2020-08-17] MED LIST changes: +ACIDOPHILUS1 EAC1 PO; +AMOCLA875 PO; +ASPI81CH PO; +ATORVASTATIN CA40 M1 PO; +Abilify2 MG PO; +BASAGLAR K100 UNIT/1 SC; +CEFDINIR300 M4 PO; +CEFP200 PO; +CLON.2 PO; +Cipro250 MG PO; +DOCU100 PO; +DOXY100 PO; +GABAPENTIN600 MG PO; +KLOR-CON 1010 ME1 PO; +LOSA50 PO; +METOPROLOL TART25 MG PO; +NOVOLIN R100 UNIT/2 SC; +NYSTATIN15 GM TOP; +SULFAMETHOXAZO1 EAC1 PO; +TAMSULOSIN HCL0.4 M1 PO
[2020-08-17 19:06] LABS: Appearance, Urine Clear (Clear); Bilirubin, Urine Neg (Neg); Blood, Urine 1+ (Neg); Color, Urine Yellow (P-Yellow); Glucose Qualitative, Urine 4+ (Neg); Ketones, Urine Neg (Neg); Leukocyte Esterase, Urine 3+ (Neg); Nitrite, Urine Pos (Neg); Protein, Urine 2+ (Neg); Urobilinogen, Urine NORM (Normal)
[2020-08-17 19:22] LABS: Amorphous Mod (0-Heavy); Bacteria Many /hpf; Squamous Epithelial Cells Not Seen /hpf (Few); White Blood Cells, Urine 50-100 /hpf (0-5)
[2020-08-17 20:29] LABS: Anion Gap 9 mmol/L (6-16); Blood Urea Nitrogen 16 mg/dL (8-24); Bun/Creatinine Ratio 25.7 (12.0-20.0); CO2, Blood 25 mmol/L (21-32); Calcium, Blood 8.4 mg/dL (8.5-10.1); Chloride, Blood 104 mmol/L (98-108); Creatinine, Blood 0.62 mg/dL (0.60-1.20); Glomerular Filtration Rate >60 (60-); Glucose, Blood 205 mg/dL (70-99); Phosphorus, Blood 3.2 mg/dL (2.5-4.9); Potassium, Blood 4.4 mmol/L (3.5-5.5); Sodium, Blood 138 mmol/L (136-145)
== END | disposition home or self-care (01) ==
LOC: LAB 18:22
PROVIDERS: Internal Medicine Nephrology
DX: N18.2 Chronic kidney disease, stage 2 (mild) (principal); D63.1 Anemia in chronic kidney disease
CPT/HCPCS: 80069; 81001; 85018; 87086

== ENCOUNTER 2020-09-29 16:30 | Emergency (ER) | payer OTHER ==
[~2020-09-29] VITALS: Ht 175.3 cm; Wt 108.9 kg
[~2020-09-29 16:30] MED LIST changes: -ACIDOPHILUS1 EAC1 PO; -AMOCLA875 PO; -ASPI81CH PO; -ATORVASTATIN CA40 M1 PO; -Abilify2 MG PO; -BASAGLAR K100 UNIT/1 SC; -CEFDINIR300 M4 PO; -CEFP200 PO; -CLON.2 PO; -Cipro250 MG PO; -DOCU100 PO; -DOXY100 PO; -FLUO10 PO; -GABAPENTIN600 MG PO; -KLOR-CON 1010 ME1 PO; -LOSA50 PO; -METOPROLOL TART25 MG PO; -NOVOLIN R100 UNIT/2 SC; -NYSTATIN15 GM TOP; -ROXICODONE15 MG PO; -SULFAMETHOXAZO1 EAC1 PO; -TAMSULOSIN HCL0.4 M1 PO
[2020-09-29] MEDS ORDERED: CEFP200 PO (17:59)
[2020-09-29 18:50] LABS: Source, Urine Catheter
[2020-09-29 18:54] LABS: Appearance, Urine Cloudy (Clear); Bilirubin, Urine Neg (Neg); Blood, Urine 5+ (Neg); Color, Urine Yellow (P-Yellow); Glucose Qualitative, Urine 4+ (Neg); Ketones, Urine 1+ (Neg); Leukocyte Esterase, Urine 3+ (Neg); Nitrite, Urine Pos (Neg); Protein, Urine 3+ (Neg); Specific Gravity, Urine 1.025 (1.003-1.022); Urobilinogen, Urine NORM (Normal)
[2020-09-29 19:09] LABS: Red Blood Cells, Urine 50-100 /hpf (0-2); Squamous Epithelial Cells Not Seen /hpf (Few)
[2020-09-29 19:10] LABS: Bacteria Mod /hpf; Yeast/Fungi Urine Mod /hpf
== END 2020-09-29 19:19 | disposition home or self-care (01) ==
LOC: ER 16:30
PROVIDERS: Physician Assistant
DX: T83.198A Other mechanical complication of other urinary devices and implants, initial encounter (principal); N39.0 Urinary tract infection, site not specified; Z79.4 Long term (current) use of insulin; Z79.82 Long term (current) use of aspirin; Z79.899 Other long term (current) drug therapy; Z79.02 Long term (current) use of antithrombotics/antiplatelets; Z88.5 Allergy status to narcotic agent; Z88.8 Allergy status to other drugs, medicaments and biological substances
CPT/HCPCS: 36415; 81001; 87077; 87086; 87186; 99283-25; A9270

== ENCOUNTER → 2020-10-31 | Outpatient (CLI) | payer OTHER ==
[~2020-10-31] MED LIST changes: +ACIDOPHILUS1 EAC1 PO; +AMOCLA875 PO; +ASPI81CH PO; +ATORVASTATIN CA40 M1 PO; +Abilify2 MG PO; +BASAGLAR K100 UNIT/1 SC; +CEFDINIR300 M4 PO; +CEFP200 PO; +CLON.2 PO; +Cipro250 MG PO; +DOCU100 PO; +DOXY100 PO; +FLUO10 PO; +GABAPENTIN600 MG PO; +KLOR-CON 1010 ME1 PO; +LOSA50 PO; +METOPROLOL TART25 MG PO; +NOVOLIN R100 UNIT/2 SC; +NYSTATIN15 GM TOP; +ROXICODONE15 MG PO; +SULFAMETHOXAZO1 EAC1 PO; +TAMSULOSIN HCL0.4 M1 PO
[2020-10-31 09:14] LABS: Source, Urine Catheter
[2020-10-31 09:26] LABS: Appearance, Urine Hazy (Clear); Bilirubin, Urine Neg (Neg); Blood, Urine 4+ (Neg); Color, Urine Yellow (P-Yellow); Glucose Qualitative, Urine 4+ (Neg); Ketones, Urine Neg (Neg); Leukocyte Esterase, Urine 3+ (Neg); Nitrite, Urine Pos (Neg); Protein, Urine 3+ (Neg); Urobilinogen, Urine NORM (Normal)
[2020-10-31 09:36] LABS: White Blood Cells, Urine TNTC /hpf (0-5)
[2020-10-31 09:38] LABS: Squamous Epithelial Cells Rare /hpf (Few)
[2020-10-31 09:39] LABS: Bacteria Many /hpf; Yeast/Fungi Urine Many /hpf
== END ==
LOC: LAB SHORT 09:11 → LAB 09:11
PROVIDERS: Family Medicine
DX: N39.0 Urinary tract infection, site not specified (principal)
CPT/HCPCS: 81001; 87077; 87086; 87147; 87186

== ENCOUNTER → 2020-12-14 | Outpatient (CLI) | payer OTHER ==
[2020-12-14 19:01] LABS: Albumin, Blood 2.7 g/dL (3.4-5.0); Anion Gap 5 mmol/L (6-16); Blood Urea Nitrogen 15 mg/dL (8-24); Bun/Creatinine Ratio 19.9 (12.0-20.0); CO2, Blood 29 mmol/L (21-32); Calcium, Blood 8.6 mg/dL (8.5-10.1); Chloride, Blood 100 mmol/L (98-108); Creatinine, Blood 0.75 mg/dL (0.60-1.20); Glomerular Filtration Rate >60 (60-); Glucose, Blood 261 mg/dL (70-99); Phosphorus, Blood 4.2 mg/dL (2.5-4.9); Potassium, Blood 3.6 mmol/L (3.5-5.5); Sodium, Blood 134 mmol/L (136-145)
== END | disposition home or self-care (01) ==
LOC: LAB HH 17:52
PROVIDERS: Internal Medicine Nephrology
DX: N18.2 Chronic kidney disease, stage 2 (mild) (principal); D63.1 Anemia in chronic kidney disease
CPT/HCPCS: 80069

== ENCOUNTER 2020-12-18 04:43 | Emergency (ER) | payer OTHER ==
[~2020-12-18] VITALS: Ht 172.7 cm; Wt 108.9 kg
[~2020-12-18 04:43] MED LIST changes: -ACIDOPHILUS1 EAC1 PO; -AMOCLA875 PO; -ASPI81CH PO; -ATORVASTATIN CA40 M1 PO; -Abilify2 MG PO; -BASAGLAR K100 UNIT/1 SC; -CEFDINIR300 M4 PO; -CLON.2 PO; -Cipro250 MG PO; -DOCU100 PO; -DOXY100 PO; -FLUO10 PO; -GABAPENTIN600 MG PO; -KLOR-CON 1010 ME1 PO; -LOSA50 PO; -METOPROLOL TART25 MG PO; -NOVOLIN R100 UNIT/2 SC; -NYSTATIN15 GM TOP; -ROXICODONE15 MG PO; -SULFAMETHOXAZO1 EAC1 PO; -TAMSULOSIN HCL0.4 M1 PO
[2020-12-18 05:29] LABS: Source, Urine Catheter
[2020-12-18 05:35] LABS: Bilirubin, Urine Neg (Neg); Blood, Urine 5+ (Neg); Glucose Qualitative, Urine 4+ (Neg); Ketones, Urine Neg (Neg); Leukocyte Esterase, Urine 2+ (Neg); Nitrite, Urine Neg (Neg); Protein, Urine 3+ (Neg); Urobilinogen, Urine NORM (Normal)
[2020-12-18 05:47] LABS: Appearance, Urine Hazy (Clear); Color, Urine Pale Yellow (P-Yellow)
[2020-12-18 05:50] LABS: Red Blood Cells, Urine 50-100 /hpf (0-2); White Blood Cells, Urine 50-100 /hpf (0-5)
[2020-12-18 05:51] LABS: Bacteria Few /hpf; Squamous Epithelial Cells Few /hpf (Few)
[2020-12-18] MEDS ORDERED: Cipro250 MG PO (06:12)
== END 2020-12-18 07:23 | disposition home or self-care (01) ==
LOC: ER 04:43
PROVIDERS: Emergency Medicine
DX: N39.0 Urinary tract infection, site not specified (principal); E11.40 Type 2 diabetes mellitus with diabetic neuropathy, unspecified; I10 Essential (primary) hypertension; E78.5 Hyperlipidemia, unspecified; Z88.5 Allergy status to narcotic agent; Z88.8 Allergy status to other drugs, medicaments and biological substances; Z79.899 Other long term (current) drug therapy; Z86.73 Personal history of transient ischemic attack (TIA), and cerebral infarction without residual deficits; Z87.891 Personal history of nicotine dependence
CPT/HCPCS: 51705; 81001; 87077; 87086; 87186; 99283-25; A9270; C2627

== ENCOUNTER 2020-12-26 13:33 | Inpatient (IN) | payer OTHER ==
[~2020-12-26] VITALS: Ht 172.7 cm; Wt 113.4 kg
[~2020-12-26 13:33] MED LIST changes: +Cipro250 MG PO
[2020-12-26 13:47] LABS: Source, Urine Catheter
[2020-12-26 13:52] LABS: BASOPHILS ABSOLUTE AUTO 0.05 K/mm3 (0.00-0.23); BASOPHILS PERCENT AUTO 1 % (0-2); EOSINOPHILS ABSOLUTE AUTO 0.48 K/mm3 (0.00-0.68); EOSINOPHILS PERCENT AUTO 4 % (0-6); Hematocrit 40.9 % (37.0-53.0); Hemoglobin 13.5 g/dL (13.5-17.5); IMMATURE GRAN ABSOLUTE AUTO 0.03 K/mm3 (0.00-0.10); IMMATURE GRAN PERCENT AUTO 0 % (0-1); LYMPHOCYTES ABSOLUTE AUTO 2.02 K/mm3 (0.84-5.20); LYMPHOCYTES PERCENT AUTO 18 % (21-46); MONOCYTES ABSOLUTE AUTO 0.84 K/mm3 (0.16-1.47); MONOCYTES PERCENT AUTO 8 % (4-13); Mean Corpuscular HGB 28.2 pg (26.0-34.0); Mean Corpuscular Volume 85 fL (80-100); Mean Platelet Volume 10.6 fL (9.1-12.4); NEUTROPHILS ABSOLUTE AUTO 7.56 K/mm3 (1.96-9.15); NEUTROPHILS PERCENT AUTO 69 % (41-73); Platelet Count 313 K/mm3 (150-400); RDW Coefficient Variation 12.2 % (11.7-14.2); RDW Standard Deviation 38.1 fL (35.1-46.3); Red Blood Cell Count 4.79 M/mm3 (4.30-5.90); White Blood Cell Count 10.98 K/mm3 (4.00-11.30)
[2020-12-26 13:57] LABS: Appearance, Urine Hazy (Clear); Blood, Urine 5+ (Neg); Color, Urine Yellow (P-Yellow); Glucose Qualitative, Urine Neg (Neg); Ketones, Urine 1+ (Neg); Leukocyte Esterase, Urine 3+ (Neg); Nitrite, Urine Neg (Neg); Protein, Urine 3+ (Neg); Specific Gravity, Urine 1.025 (1.003-1.022); Urobilinogen, Urine 1+ (Normal)
[2020-12-26 14:13] LABS: Bilirubin, Urine 1+ (Neg)
[2020-12-26 14:20] LABS: Alanine Aminotransfer (ALT/SGP 24 U/L (12-78); Albumin/Globulin Ratio 0.8 (0.8-1.8); Alk Phos 109 U/L (50-136); Anion Gap 5 mmol/L (6-16); Aspartate Aminotrans (AST/SGOT 20 U/L (12-37); Bilirubin, Total 0.6 mg/dL (0.1-1.0); Blood Urea Nitrogen 13 mg/dL (8-24); Bun/Creatinine Ratio 12.5 (12.0-20.0); CO2, Blood 26 mmol/L (21-32); Calcium, Blood 8.5 mg/dL (8.5-10.1); Chloride, Blood 107 mmol/L (98-108); Creatinine, Blood 1.04 mg/dL (0.60-1.20); Globulin, Blood 3.8 g/dL (2.2-4.0); Glomerular Filtration Rate >60 (60-); Glucose, Blood 104 mg/dL (70-99); Potassium, Blood 4.3 mmol/L (3.5-5.5); Sodium, Blood 138 mmol/L (136-145); Total Protein, Blood 6.8 g/dL (6.4-8.2)
[2020-12-26 14:23] LABS: Calcium Oxalate Crystals Rare /hpf; WBC Cast Rare /lpf (0); White Blood Cells, Urine 25-50 /hpf (0-5)
[2020-12-26 14:24] LABS: Bacteria Many /hpf; Red Blood Cells, Urine 25-50 /hpf (0-2); Squamous Epithelial Cells Rare /hpf (Few)
[2020-12-26] MEDS ORDERED: ROXICODONE15 MG PO (15:21)
[2020-12-26] MEDS ORDERED: CEFDINIR300 M4 PO (15:22)
[2020-12-26] MEDS ORDERED: SULFAMETHOXAZO1 EAC1 PO (15:24)
[2020-12-26] MEDS ORDERED: KLOR-CON 1010 ME1 PO (15:25)
[2020-12-26] MEDS ORDERED: Abilify2 MG PO (15:25)
[2020-12-26] MEDS ORDERED: FURO40 PO (15:25)
[2020-12-26] MEDS ORDERED: FLUO10 PO (15:26)
[2020-12-26] MEDS ORDERED: GABAPENTIN600 MG PO (15:26)
[2020-12-26] MEDS ORDERED: BASAGLAR K100 UNIT/1 SC (15:26)
[2020-12-26] MEDS ORDERED: AMLO5 PO (15:26)
[2020-12-26] MEDS ORDERED: CLON.2 PO (15:27)
[2020-12-26] MEDS ORDERED: METOPROLOL TART25 MG PO (15:28)
[2020-12-26] MEDS ORDERED: ATORVASTATIN CA40 M1 PO (15:28)
[2020-12-26] MEDS ORDERED: LOSA50 PO (15:29)
[2020-12-26] MEDS ORDERED: TAMSULOSIN HCL0.4 M1 PO (15:30)
[2020-12-26] MEDS ORDERED: NOVOLIN R100 UNIT/2 SC (15:41)
--- NOTE | 2020-12-26 19:10 | NUR ---
I HAVE REVIEWED THE VETERINARY SURGERY TECHNICIAN'S DOCUMENTATION, CONDUCTED AN INDEPENDENT ASSESSMENT, AND I AGREE WITH THE STUDENT'S DOCUMENTATION
--- NOTE | 2020-12-26 19:11 | NUR ---
SHIFT SUMMARY PATIENT TO THE FLOOR LATE THIS AFTERNOON. PATIENT ALERT AND ORIENTED UPON ARRIVAL TO THE FLOOR. PATIENT ARRIVED VIA GURNEY. PATIENT SLIDE TRANSFERS. PATIENT BEDBOUND AT BASELINE. PATIENT ORIENTED TO THE ROOM. DINNER PROVIDED, ADMISSION ASSESSMENT COMPLETED, IV ANTIBIOTICS STARTED. PATIENT CURRENTLY RESTING IN BED.
--- NOTE | 2020-12-27 04:30 | NUR ---
SHIFT SUMMARY NO ACUTE CHANGES THIS SHIFT, NO C/O ANY KIND, VSS, REPOS Q2, SUPR PUB PATENT & DRAINING, PT ALSO HAS BEEN INCONT OF URINE, SLEPT T/O THE NIGHT WAKING SEVERAL TIMES, PLEASANTLY CONFUSED- EASILY REORIENTABLE, BEDRESTING AT THIS TIME, CALL LIGHT IN REACH, BED ALARM ACTIVE, WILL CONT TO MONITOR UNTIL REPORT GIVEN TO DAY RN.
[2020-12-27 05:25] LABS: BASOPHILS ABSOLUTE AUTO 0.04 K/mm3 (0.00-0.23); BASOPHILS PERCENT AUTO 0 % (0-2); EOSINOPHILS ABSOLUTE AUTO 0.36 K/mm3 (0.00-0.68); EOSINOPHILS PERCENT AUTO 4 % (0-6); Hemoglobin 12.3 g/dL (13.5-17.5); IMMATURE GRAN ABSOLUTE AUTO 0.02 K/mm3 (0.00-0.10); IMMATURE GRAN PERCENT AUTO 0 % (0-1); LYMPHOCYTES ABSOLUTE AUTO 2.07 K/mm3 (0.84-5.20); LYMPHOCYTES PERCENT AUTO 22 % (21-46); MONOCYTES ABSOLUTE AUTO 0.91 K/mm3 (0.16-1.47); MONOCYTES PERCENT AUTO 10 % (4-13); Mean Corpuscular HGB 28.1 pg (26.0-34.0); Mean Corpuscular HGB Conc 32.4 g/dL (31.5-36.5); Mean Corpuscular Volume 87 fL (80-100); Mean Platelet Volume 10.8 fL (9.1-12.4); NEUTROPHILS ABSOLUTE AUTO 6.22 K/mm3 (1.96-9.15); NEUTROPHILS PERCENT AUTO 65 % (41-73); Platelet Count 283 K/mm3 (150-400); RDW Coefficient Variation 12.4 % (11.7-14.2); RDW Standard Deviation 39.7 fL (35.1-46.3); Red Blood Cell Count 4.38 M/mm3 (4.30-5.90); White Blood Cell Count 9.62 K/mm3 (4.00-11.30)
[2020-12-27 06:00] LABS: Anion Gap 6 mmol/L (6-16); Blood Urea Nitrogen 13 mg/dL (8-24); Bun/Creatinine Ratio 13.1 (12.0-20.0); CO2, Blood 25 mmol/L (21-32); Calcium, Blood 8.2 mg/dL (8.5-10.1); Chloride, Blood 108 mmol/L (98-108); Glomerular Filtration Rate >60 (60-); Glucose, Blood 79 mg/dL (70-99); Potassium, Blood 3.6 mmol/L (3.5-5.5); Sodium, Blood 139 mmol/L (136-145)
--- NOTE | 2020-12-27 12:53 | NUR ---
UPDATE WITH PATIENT'S SPOUSE: SPOKE WITH MURPHY, THE PATIENT'S . SHE REPORTS THAT SHE IS GRATEFUL FOR THE CARE AND THAT SHE UNDERSTANDS HE WILL NEED TO BE HERE A FEW MORE DAYS. SHE REPORTS THAT SHE WILL ASK THEIR SON TO DROP OFF THE PATIENT'S CPAP THIS EVENING. SHE REPORTS THAT THE LAST TIME THE PATIENT HAD HIS SUPRAPUBIC TUBING CHANGED WAS HERE AT [facility] ABOUT 2 WEEKS AGO IN THE ED.
--- NOTE | 2020-12-27 20:21 | NUR ---
END OF SHIFT SUMMARY: PATIENT REPORTED PAIN ONE TIME TODAY IN HIS LOWER BACK AND NECK. PATIENT REPORTS THIS IS HIS BASELINE. MEDICATED PER PRNS. PATIENT REPORTED IMPROVEMENT. PATIENT DENIED OTHER PAIN OR DISCOMFORT. WHEN THE PATIENT BECOMES TIRED OR FATIGUED, HIS SPEECH BECOMES SLIGHTLY GARBLED. PATIENT ABLE TO CORRECT HIMSELF. PATIENT REPORTS THIS IS NORMAL FOR HIM. PATIENT HAD AN ADEQUATE APPETITE. NO CHANGE TO NEURO STATUS NOTED DURING SHIFT OTHER THAN MENTIONED ABOVE. PATIENT'S NOTIFIED OF THE PLAN. PATIENT'S FAMILY BROUGHT IN HIS CPAP MACHINE. NO DISCHARGE NOTED FROM CATH INSERTION SITE. NO URINE FROM THE URETHRA. PATIENT'S REPORTED THAT IT WAS CHANGED TWO WEEKS AGO AT [facility] IN THE ED. PATIENT WORKED WITH PT/OT TO STAND AT THE BEDSIDE WITH THE SERA STEADY. PATIENT TOLERATED WELL.
--- NOTE | 2020-12-27 20:50 | NUR ---
ASSUMPTION OF CARE. AOX3 BUT FORGETFUL AT TIMES. LEFT SIDED WEAKNESS. ABARCA CATH PATENT AND YELLOW URINE. OSTOMY SITE CDI. ATTENDS DRY. LUNGS CLEAR DIMINISHED. NO COUGH. HR SINUS. TOOK MEDS WITH NO PROBLEMS. FAIR APPETITE. REPOSITIONED IN BED. NO NEEDS NOTED. CALL LIGHT IN REACH.
--- NOTE | 2020-12-28 05:06 | NUR ---
SHIFT SUMMARY: AOX3, FORGETFUL, USES CALL LIGHT APPROPRIATLY. ABLE TO MAKE NEEDS KNOWN. NO PAIN. WIGGLES FREQUENTLY IN BED, NEEDS REPOSITION OFTEN. CATHETER PATENT WITH CLEAR YELLOW URINE, OSTOMY SITE CDI. VS WNL, AFEBRILE. SLEPT WELL T/O SHIFT. AWAITING CULTURE RESULTS. IVF CONTINUE TO INFUSE AT 100 ML/HR. NO ACUTE CHANGES THIS SHIFT. CALL LIGHT REMAINS IN REACH AND BED ALARM IS SET.
[2020-12-28 08:32] LABS: Vancomycin, Trough 14.6 ug/mL (5.0-10.0)
--- NOTE | 2020-12-28 11:57 | NUR ---
TRANSFERED PT TRANSFERED TO [facility] 324. REPORT GIVEN TO CARLEEN YOON RN. THIS RN REVIEWED NURSING STUDENTS DOCUMENTATION & AGREES WITH IT. NO ACUTE CHANGES IN ASSESSMENT PRIOR TO TRANSFER. ATTEMPTED TO CALL PTS WITH UPDATE ON THE ROOM CHANGE, BUT UNABLE TO GET AHOLD OF HER.
[2020-12-28] MEDS ORDERED: AMOCLA875 PO (15:34)
[2020-12-28] MEDS ORDERED: DOCU100 PO (15:53)
[2020-12-28] MEDS ORDERED: ASPI81CH PO (15:53)
[2020-12-28] MEDS ORDERED: ACIDOPHILUS1 EAC1 PO (15:54)
[2020-12-28] MEDS ORDERED: NYSTATIN15 GM TOP (15:54)
[2020-12-28] MEDS ORDERED: ONDA4ODT MM (15:54)
--- NOTE | 2020-12-28 17:14 | NUR ---
DISCHARGE NOTE- PT SPOUSE PRESENT FOR DISCHARGE TEACHING. VERBAL AND WRITTEN DISCHARGE INSTRUCTIONS WERE PROVIDED AND THEY ACKNOWLEDGED UNDERSTANDING OF THEM. PT WAS TAKEN VIA WC TRANSPORT TO HIS HOME AT THE TIME OF DISCHARGE. SPOUSE PRESENT FOR PICKUP. PT MEDICATED FOR PAIN AND NAUSEA PRIOR TO DISCHARGE BECAUSE HE HAS GOTTEN SICK IN WC TRANSPORT IN THE PAST. NO S&S OF DISTRESS NOTED AT THE TIME OF DISCHARGE.
== END 2020-12-28 17:07 | disposition home health service (06) | DRG 698 ==
LOC: ER 13:33 → MEDS 15:44
PROVIDERS: Emergency Medicine; Pharmacist; ADMIT Internal Medicine
DX: T83.511A Infection and inflammatory reaction due to indwelling urethral catheter, initial encounter (principal); G92 Toxic encephalopathy; E11.40 Type 2 diabetes mellitus with diabetic neuropathy, unspecified; I10 Essential (primary) hypertension; E78.5 Hyperlipidemia, unspecified; J44.9 Chronic obstructive pulmonary disease, unspecified; F32.9 Major depressive disorder, single episode, unspecified; M81.0 Age-related osteoporosis without current pathological fracture; K21.9 Gastro-esophageal reflux disease without esophagitis; Z86.73 Personal history of transient ischemic attack (TIA), and cerebral infarction without residual deficits; Z86.14 Personal history of Methicillin resistant Staphylococcus aureus infection; Z79.4 Long term (current) use of insulin; Z79.82 Long term (current) use of aspirin; Z79.02 Long term (current) use of antithrombotics/antiplatelets; Z87.891 Personal history of nicotine dependence
CPT/HCPCS: 36415; 80048; 80053; 80202; 81001; 82947; 83605; 85025; 96365; 97110; 97163; 97166; 97530; 97535; 99285-25; A9270; A9270-GY; J0696; J1580; J1650; J1815; J3370; J7030; J7050

== ENCOUNTER → 2021-02-03 | Outpatient (CLI) | payer OTHER ==
[~2021-02-03] MED LIST changes: +ACIDOPHILUS1 EAC1 PO; +AMOCLA875 PO; +ASPI81CH PO; +ATORVASTATIN CA40 M1 PO; +Abilify2 MG PO; +BASAGLAR K100 UNIT/1 SC; +CEFDINIR300 M4 PO; +CLON.2 PO; +DOCU100 PO; +DOXY100 PO; +FLUO10 PO; +GABAPENTIN600 MG PO; +KLOR-CON 1010 ME1 PO; +LOSA50 PO; +METOPROLOL TART25 MG PO; +NOVOLIN R100 UNIT/2 SC; +NYSTATIN15 GM TOP; +ROXICODONE15 MG PO; +SULFAMETHOXAZO1 EAC1 PO; +TAMSULOSIN HCL0.4 M1 PO
[2021-02-03 14:18] LABS: Albumin, Blood 2.8 g/dL (3.4-5.0); Anion Gap 6 mmol/L (6-16); Blood Urea Nitrogen 13 mg/dL (8-24); Bun/Creatinine Ratio 17.4 (12.0-20.0); CO2, Blood 27 mmol/L (21-32); Calcium, Blood 8.5 mg/dL (8.5-10.1); Chloride, Blood 104 mmol/L (98-108); Creatinine, Blood 0.75 mg/dL (0.60-1.20); Glomerular Filtration Rate >60 (60-); Glucose, Blood 402 mg/dL (70-99); Phosphorus, Blood 3.3 mg/dL (2.5-4.9); Sodium, Blood 137 mmol/L (136-145)
== END | disposition home or self-care (01) ==
LOC: LAB SHORT 10:10 → LAB 10:10
PROVIDERS: Internal Medicine Nephrology
DX: N18.2 Chronic kidney disease, stage 2 (mild) (principal); D63.1 Anemia in chronic kidney disease
CPT/HCPCS: 80069; 85018

== ENCOUNTER 2021-02-17 16:56 | Emergency (ER) | payer OTHER ==
[~2021-02-17] VITALS: Ht 182.9 cm; Wt 99.8 kg
[~2021-02-17 16:56] MED LIST changes: -DOXY100 PO
[2021-02-17 17:42] LABS: BASOPHILS ABSOLUTE AUTO 0.07 K/mm3 (0.00-0.23); BASOPHILS PERCENT AUTO 1 % (0-2); EOSINOPHILS ABSOLUTE AUTO 0.47 K/mm3 (0.00-0.68); EOSINOPHILS PERCENT AUTO 3 % (0-6); Hematocrit 40.8 % (37.0-53.0); Hemoglobin 13.3 g/dL (13.5-17.5); IMMATURE GRAN ABSOLUTE AUTO 0.14 K/mm3 (0.00-0.10); IMMATURE GRAN PERCENT AUTO 1 % (0-1); LYMPHOCYTES ABSOLUTE AUTO 1.68 K/mm3 (0.84-5.20); LYMPHOCYTES PERCENT AUTO 12 % (21-46); MONOCYTES PERCENT AUTO 8 % (4-13); Mean Corpuscular HGB 28.2 pg (26.0-34.0); Mean Corpuscular HGB Conc 32.6 g/dL (31.5-36.5); Mean Corpuscular Volume 86 fL (80-100); Mean Platelet Volume 10.7 fL (9.1-12.4); NEUTROPHILS ABSOLUTE AUTO 10.76 K/mm3 (1.96-9.15); NEUTROPHILS PERCENT AUTO 75 % (41-73); Platelet Count 302 K/mm3 (150-400); RDW Coefficient Variation 12.8 % (11.7-14.2); RDW Standard Deviation 40.5 fL (35.1-46.3); Red Blood Cell Count 4.72 M/mm3 (4.30-5.90); White Blood Cell Count 14.32 K/mm3 (4.00-11.30)
[2021-02-17 18:06] LABS: Troponin I <0.015 ng/mL (0.000-0.040)
[2021-02-17 18:08] LABS: Alanine Aminotransfer (ALT/SGP 21 U/L (12-78); Albumin, Blood 2.6 g/dL (3.4-5.0); Albumin/Globulin Ratio 0.6 (0.8-1.8); Alk Phos 112 U/L (50-136); Anion Gap 4 mmol/L (6-16); Aspartate Aminotrans (AST/SGOT 14 U/L (12-37); Blood Urea Nitrogen 20 mg/dL (8-24); Bun/Creatinine Ratio 23.5 (12.0-20.0); CO2, Blood 28 mmol/L (21-32); Calcium, Blood 9.1 mg/dL (8.5-10.1); Chloride, Blood 100 mmol/L (98-108); Creatinine, Blood 0.85 mg/dL (0.60-1.20); Globulin, Blood 4.6 g/dL (2.2-4.0); Glomerular Filtration Rate >60 (60-); Glucose, Blood 244 mg/dL (70-99); Potassium, Blood 3.7 mmol/L (3.5-5.5); Sodium, Blood 132 mmol/L (136-145); Total Protein, Blood 7.2 g/dL (6.4-8.2)
[2021-02-17] MEDS ORDERED: DOXY100 PO (22:20)
== END 2021-02-17 22:55 | disposition home or self-care (01) ==
LOC: ER 16:56
PROVIDERS: Emergency Medicine
DX: J18.9 Pneumonia, unspecified organism (principal); I10 Essential (primary) hypertension; E11.40 Type 2 diabetes mellitus with diabetic neuropathy, unspecified; J44.9 Chronic obstructive pulmonary disease, unspecified; K21.9 Gastro-esophageal reflux disease without esophagitis; Z79.4 Long term (current) use of insulin; Z88.5 Allergy status to narcotic agent; Z88.8 Allergy status to other drugs, medicaments and biological substances; Z79.899 Other long term (current) drug therapy; Z87.891 Personal history of nicotine dependence
CPT/HCPCS: 36415; 71045; 71260; 80053; 83880; 84484; 85025; 85379; 93005; 93010; 99285-25; J0696; J7030; Q9967

== ENCOUNTER → 2021-05-05 | Outpatient (CLI) | payer OTHER ==
[~2021-05-05] MED LIST changes: +DOXY100 PO
[2021-05-05 17:44] LABS: Appearance, Urine Cloudy (Clear); Blood, Urine 3+ (Neg); Color, Urine Yellow (P-Yellow); Glucose Qualitative, Urine Neg (Neg); Ketones, Urine 1+ (Neg); Leukocyte Esterase, Urine 3+ (Neg); Nitrite, Urine Neg (Neg); Protein, Urine 3+ (Neg); Urobilinogen, Urine 1+ (Normal)
[2021-05-05 18:01] LABS: Bilirubin, Urine 1+ (Neg)
[2021-05-05 18:02] LABS: Bacteria Many /hpf; Squamous Epithelial Cells Not Seen /hpf (Few); White Blood Cells, Urine TNTC /hpf (0-5)
== END | disposition home or self-care (01) ==
LOC: LAB 16:49 → LAB SHORT 16:49
PROVIDERS: Nurse Practitioner
DX: N39.0 Urinary tract infection, site not specified (principal)
CPT/HCPCS: 81001; 87077; 87086; 87186